=== PATIENT | male | born 1990 | race Caucasian/White ===

== ENCOUNTER 2017-10-21 19:57 | Emergency (ER) | payer OTHER ==
[2017-10-21 20:04] VITALS: BP 153/87
[2017-10-21] MEDS ORDERED: SILVER NITRATE APPLICATOR 1 APPL TP ONE ×2 (20:28→20:35)
--- NOTE | 2017-10-21 20:35 | EDPHY ---
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 He took off part of his nail. He reports moderate bleeding. He applied pressure immediately. He denies any paresthesias /weakness/decreased range of motion. Reports tetanus up-to-date. Modifying Factors: Direct pressure Comment: ROS: see HPI Constitutional: No fever, no chills, no weight loss Eyes: No blurred vision Respiratory: No shortness of breath, no cough Cardiovascular: No chest pain Gastrointestinal: No nausea, no vomiting no diarrhea Genitourinary: No dysuria Extremities: No myalgias Neurologic: No weakness, no numbness Skin: No rashes Hematologic: No bruising, no bleeding MEDICAL/SURGICAL/SOCIAL HISTORY: Medical history: Generally healthy. Does not take any regular medications. Surgical history: Denies Social history: Employed. CONSTITUTIONAL: Polite and cooperative adult white male, awake and alert, no obvious distress HEENT: Atraumatic and normocephalic. Cardiovascular: Normal S1/S2, regular rate, regular rhythm, without murmur rub or gallop. PULMONARY/CHEST: Symmetrical and nontender. no crepitus. Clear to auscultation bilaterally. Good air movement. No accessory muscle usage. ABDOMEN: Soft, nondistended, nontender, no ecchymosis. PELVIC: no pain with rocking; bilateral hips flexion 125 degrees, extension 30 degrees, with no pain internal rotation and no pain external rotation. BACK: No midline tenderness, no paraspinous spasm, deep tendon reflexes 2/2, no pain with straight leg raise, No foot drop. Achilles reflexes are equal bilaterally. Able to walk on heels and toes without difficulty. EXTREMITIES: 2/2 pulses, strength 5/5, right thumb partial avulsion of entire lateral nail-active bleeding noted. DIP/PIP/MCP flexion/extension intact with good light touch sensation. no deformities, no clubbing, no cyanosis or edema. NEUROLOGICAL: no focal neuro deficits. GCS 15. Light touch sensation intact. SKIN: Warm and dry, no erythema. no rash. Good capillary refill. Source: Patient Exam Limitations: No limitations - Personal History Current Tetanus/Diphtheria Vaccine: Yes Current Tetanus Diphtheria and Acellular Pertussis (TDAP): Yes - Medical/Surgical History Hx Asthma: Yes Hx Chronic Respiratory Disease: No Hx Diabetes: No Hx Cardiac Disease: No Hx Renal Disease: No Hx Cirrhosis: No Hx Alcoholism: No Hx HIV/AIDS: No Hx Splenectomy or Spleen Trauma: No Other PMH: Denies - Social History Smoking Status: Never smoked Constitutional: Initial Vital Signs Temperature (C) 36.6 C 10/21/17 20:00 Heart Rate 76 10/21/17 20:00 Respiratory Rate 16 10/21/17 20:00 Blood Pressure 153/87 H 10/21/17 20:00 O2 Sat (%) 95 10/21/17 20:00 O2 Delivery Mode Room Air Allergies/Adverse Reactions: No Known Allergies Allergy (Unverified 10/21/17 20:04) Home Medications: Medication Instructions Recorded NK [No Known Home Meds] 10/21/17 Medical Decision Making ED Course/Re-evaluation: Digital block performed upon arrival. Silver nitrate sticks x3 and Wrapped in [place] and [place] with direct pressure times 15 min. 2049: Reassessed with good hemostasis. Clean sterile dressing applied. Works precautions provided. This patient was seen under the supervision of my secondary supervising physician. I evaluated care for this patient independently. Discussed this patient with Dr. Charles who did not see the patient. Differential Diagnosis: Differential diagnosis includes but is not limited to nail avulsion, nail bed injury, laceration, nerve injury, tendon injury. - Data Points Medications Given: Discontinued Medications Silver Nitrate/Potassium Nitrate (Silver Nitrate Applicator) 3 each TP EDNOW ONE Stop: 10/21/17 20:36 Last Admin: 10/21/17 20:36 Dose: 3 each Departure - Departure Disposition: Home, Routine, Self-Care Clinical Impression: Traumatic avulsion of nail plate of finger Qualifiers: Encounter type: initial encounter Qualified Code(s): S61.309A - Unspecified open wound of unspecified finger with damage to nail, initial encounter Avulsion of skin of finger without complication Qualifiers: Encounter type: initial encounter Qualified Code(s): S61.209A - Unspecified open wound of unspecified finger without damage to nail, initial encounter Condition: Good Instructions: Skin Avulsion (ED), Nail Avulsion (ED) Additional Instructions: Keep the dressing dry and in place for 48 hours. After 48 hours, you may remove the dressing; wash the site daily with mild soap and water; then pat dry; apply topical antibiotic ointment and clean sterile dressing until fully healed. Take Tylenol 650 mg every 4 hours and/or Ibuprofen 600 mg every 8 hours with food as needed for pain. Apply ice for 30 minutes at a time; 2-3 times per day for the next 1-2 days. Please be aware that it will take weeks to months for your nail to grow back. Keep your right hand covered with a finger condom and glove while at work until fully healed. Return to the ER immediately if you experience redness, red streaks, have fevers /chills, flu like symptoms, limited range of motion, or any other symptoms that concern you. Referrals: [facility],. [Clinic] - As per Instructions
== END 2017-10-21 20:50 | disposition home or self-care (01) ==
DX: S61.101A Unspecified open wound of right thumb with damage to nail, initial encounter (principal); J45.909 Unspecified asthma, uncomplicated; W27.4XXA Contact with kitchen utensil, initial encounter; Y92.512 Supermarket, store or market as the place of occurrence of the external cause; Y99.0 Civilian activity done for income or pay; Y93.89 Activity, other specified